=== PATIENT | male | born 1945 | race Two or more races ===

== ENCOUNTER 2020-10-27 14:35 | Outpatient (REF) | payer MEDICARE, SELFPAY ==
[2020-10-27 17:43] LABS: SARS COV2 PCR INHOUSE NEGATIVE (Negative)
== END 2020-10-27 14:36 | disposition home or self-care (01) ==
LOC: HO.LAB 14:35
PROVIDERS: Visit Provider Internal Medicine
DX: Z20.822 Contact with and (suspected) exposure to COVID-19 (principal)
CPT/HCPCS: C9803; U0003